=== PATIENT | female | born 1975 | race African-American/Black ===

== ENCOUNTER 2017-06-25 00:23 | Emergency (ER) | payer BC ==
[2017-06-25 00:48] LABS: Bilirubin Negative (Negative); Clarity Cloudy (Clear); Glucose, Urine (Dipstick) Negative (Negative)
[2017-06-25 00:50] LABS: Pregnancy Test - Urine (BHCG) Negative (Negative)
[2017-06-25 00:51] LABS: Pregu Control Background? CLEAR/WHITE (CLR/WHITE); Pregu Control Bar Appear? YES (CONTROL BAR)
[2017-06-25 00:52] LABS: Leukocyte Unable to Interpret (Negative); Nitrite Unable to Interpret (Negative)
[2017-06-25 00:53] LABS: Urobilinogen UNABLE TO INTERPRET mg/dL (0.2-1.0)
[2017-06-25 00:55] LABS: Protein, Urine (Dipstick) 300 mg/dL (Neg-Trace)
[2017-06-25 00:59] LABS: Bacteria/HPF Rare-Few HPF (None Seen); Blood, Urine Large (Negative); Hyaline Casts/LPF NONE SEEN LPF (0-3 Hyaline); RBC/HPF GREATER THAN 50-TNTC HPF (0-3); Squamous Epithelial 0-3 HPF (0-3); WBC/HPF 0-3 HPF (0-3)
[2017-06-25] MEDS ORDERED: Ketorolac Tromethamine 30 MG/ML VIAL ONE (01:05)
[2017-06-26 01:12] LABS: Chlamydia by PCR Not Detected (NotDetected); GC by PCR Not Detected (NotDetected)
== END 2017-06-25 01:49 | disposition home or self-care (01) ==
LOC: SCSER 00:23
DX: N93.9 Abnormal uterine and vaginal bleeding, unspecified (principal)
CPT/HCPCS: 81003; 81015; 81025; 87480; 87491; 87510; 87591; 87660; 96372; J1885

== ENCOUNTER 2017-07-21 16:22 | Emergency (ER) | payer BC ==
[2017-07-21 16:44] LABS: Bilirubin Negative (Negative); Blood, Urine Negative (Negative); Clarity CLEAR (Clear); Glucose, Urine (Dipstick) Negative (Negative); Leukocyte Negative (Negative); Nitrite Negative (Negative); Pregnancy Test - Urine (BHCG) Negative (Negative); Pregu Control Background? CLEAR/WHITE (CLR/WHITE); Pregu Control Bar Appear? YES (CONTROL BAR); Protein, Urine (Dipstick) Negative (Neg-Trace); Urobilinogen 0.2 mg/dL (0.2-1.0)
[2017-07-21 16:46] LABS: Specific Gravity 1.003 (1.002-1.036); Specific Gravity, Urine 1.003 (1.002-1.036)
[2017-07-21] MEDS ORDERED: Morphine 4 MG/ML VIAL ONE (17:10)
[2017-07-21] MEDS ORDERED: Ketorolac Tromethamine 30 MG/ML VIAL ONE (17:11)
[2017-07-21] MEDS ORDERED: Ondansetron ODT 4 MG TAB ONE (17:11)
--- NOTE | 2017-07-21 18:34 | ULT ---
PELVIC ULTRASOUND: History: Pelvic pain. FINDINGS: Real-time imaging of the pelvis was obtained transabdominally. This shows a markedly enlarged uterus measuring 8.8 x 10.9 x 15.8 cm. The endometrium is difficult to image given the heterogeneity of the uterus and multiple small fibroids. The endometrium does not appear thickened. The right and left adnexa are normal in size. There is a small amount of free fluid demonstrated. IMPRESSION: Enlarged heterogeneous uterus with multiple fibroids. POS: [facility]IL
== END 2017-07-21 20:04 | disposition home or self-care (01) ==
LOC: ERS 16:22
DX: D25.9 Leiomyoma of uterus, unspecified (principal); D50.9 Iron deficiency anemia, unspecified; Z79.899 Other long term (current) drug therapy
CPT/HCPCS: 76856; 81003; 81025; 96372; J1885; J2270; Q0162

== ENCOUNTER 2017-08-21 15:32 | Outpatient (CLI) | payer BC ==
--- NOTE | 2017-08-21 17:32 | MRI ---
MRI OF PELVIS WITH AND WITHOUT CONTRAST: 08/21/17 HISTORY: D25.9 - uterine leiomyoma unspecified location. COMPARISON: Pelvic ultrasound 07/21/17. FINDINGS: There is near complete replacement of the enlarged uterus by fibroids. Innumerable submucosal intramu ral and subserosal fibroids. The submucosal fibroids cause filling defects within the endometrial cav ity. No abnormal enhancing mass. The ovaries are unremarkable. The visualized skeleton is unremarkable. Trace free fluid. Urinary bladder is unremarkable. No adenopathy. IMPRESSION: Innumerable fibroids predominantly replacing the myometrium throughout the uterus with minimal normal myometrium remaining. There is replacement of the junctional zone with fibroids. There are innumerab le submucosal, intramural and subserosal fibroids. Numerous fibroids protrude into the endometrial ca vity. POS: SAHIL
== END 2017-08-21 15:33 | disposition home or self-care (01) ==
LOC: SCSMRI 15:32
DX: D25.1 Intramural leiomyoma of uterus (principal); D25.0 Submucous leiomyoma of uterus; D25.2 Subserosal leiomyoma of uterus
CPT/HCPCS: 72197

== ENCOUNTER 2017-09-28 05:53 | Emergency (ER) | payer BC | END 2017-09-28 06:45 | disposition home or self-care (01) | LOC: SCSER 05:53 | DX: J02.9 Acute pharyngitis, unspecified (principal); E05.90 Thyrotoxicosis, unspecified without thyrotoxic crisis or storm; D50.0 Iron deficiency anemia secondary to blood loss (chronic); Z79.899 Other long term (current) drug therapy | CPT/HCPCS: 80053; 82670; 84144; 84270; 84403; 84439; 84443; 84481; 87081; 87430; 99283 ==

== ENCOUNTER 2017-10-15 09:06 | Outpatient (CLI) | payer BC ==
--- NOTE | 2017-10-16 15:56 | MMO ---
MAMMOGRAM DIGITAL SCREENING BILATERAL: DATE: 10/15/17 COMPARISON: None available. HISTORY: 42-year-old female for routine, baseline screening mammogram. TECHNIQUE: Digital mammographic views. Computer-aided detection (CAD) utilized. FINDINGS: The breasts are extremely dense, which lowers the sensitivity of mammography. There is no evidence of suspicious mass, suspicious calcifications, or architectural distortion. IMPRESSION: 1. BIRADS 1 - Negative. 2. Recommendation: routine bilateral annual screening mammogram (unless the patient develops suspici ous clinical findings that would warrant earlier imaging follow up). brook [] POS: SAHIL
== END 2017-10-15 09:07 | disposition home or self-care (01) ==
LOC: SCSMAMMO 09:06
PROVIDERS: ATTEND Obstetrics & Gynecology
DX: Z12.31 Encounter for screening mammogram for malignant neoplasm of breast (principal)
CPT/HCPCS: 77067